=== PATIENT | female | born 1995 | race American Indian/Alaskan Native ===

== ENCOUNTER 2018-12-16 00:14 | Emergency (ER) | payer MEDICAID ==
[2018-12-16] MEDS ORDERED: TYLENOL PO ONE (00:23)
[2018-12-16 03:43] LABS: HCG Qualitative,Urine Negative (Negative)
[2018-12-16 03:47] LABS: Bilirubin,Urine Negative (Negative); Blood,Urine Negative (Negative); Color,Urine Dark Yellow (Yellow)
[2018-12-16 03:48] LABS: Mucus,Urine 2+ /HPF
[2018-12-16] MEDS ORDERED: NACL 0.9% 1000 ML 1,000 ML IV ONE (07:15)
[2018-12-16] MEDS ORDERED: ROCEPHIN/NS 1 GM/50 ML 1 GM/50 ML BAG IV ONE (07:15)
[2018-12-16 09:30] LABS: Basophils % (Auto) 0.7 % (0.0-1.8); Eosinophils % (Auto) 0.2 % (0.0-4.3); Hematocrit 39.6 % (30.3-42.9); Hemoglobin 12.8 gm/dl (10.1-14.3); Lymphocytes # (Auto) 0.9 K/mm3 (1.2-5.4); Lymphocytes % (Auto) 30.8 % (13.4-35.0); Mean Corpuscular HGB Conc 32 % (30-34); Mean Corpuscular Volume 96 fl (79-97); Monocytes # (Auto) 0.3 K/mm3 (0.0-0.8); Monocytes % (Auto) 9.1 % (0.0-7.3); Platelet Count 138 K/mm3 (140-440); Red Blood Count 4.14 M/mm3 (3.65-5.03); Red Cell Distribution Width 13.8 % (13.2-15.2)
--- NOTE | 2018-12-16 09:49 | Emergency Department Report ---
ED General Adult HPI - General Chief complaint: Pain General Stated complaint: BODY PAIN Time Seen by Provider: 12/16/18 07:14 Source: patient Mode of arrival: Ambulatory Limitations: No Limitations - History of Present Illness Initial comments: 23-year-old female plans of difficulty urinating, hematuria, dysuria. She has complaints of total body pain and some headache. He denies vomiting. She thinks she might have had some chills but did not measure her temperature. She denies nausea. She denies vaginal discharge or bleeding. She states that she has been treated for UTI in the past. She's not been on any recent antibiotics. -: Gradual, hour(s) Location: head, upper extremity, lower extremity Severity scale (0 -10): 4 Quality: aching Consistency: intermittent Improves with: none Worsens with: none Associated Symptoms: denies other symptoms (except as above) - Related Data Previous Rx's Medication Instructions Recorded Last Taken Type HYDROcodone/APAP 5-325 [[place] 1 each PO Q6HR PRN #7 tablet 12/16/18 Unknown Rx 5/325] cefUROXime [Ceftin] 250 mg PO Q12H #20 tablet 12/16/18 Unknown Rx Allergies Allergy/AdvReac Type Severity Reaction Status Date / Time No Known Allergies Allergy Verified 12/16/18 00:18 ED Review of Systems ROS: Stated complaint: BODY PAIN Other details as noted in HPI Constitutional: chills. denies: fever Eyes: denies: eye pain, eye discharge, vision change ENT: denies: ear pain, throat pain Respiratory: denies: cough, shortness of breath, wheezing Cardiovascular: denies: chest pain, palpitations Endocrine: no symptoms reported Gastrointestinal: denies: abdominal pain, nausea, diarrhea Genitourinary: as per HPI, urgency, dysuria, hematuria. denies: discharge Musculoskeletal: denies: back pain, joint swelling, arthralgia Skin: denies: rash, lesions Neurological: headache (mild nonacute associated with pain involving her entire body). denies: weakness, paresthesias Psychiatric: denies: anxiety, depression Hematological/Lymphatic: denies: easy bleeding, easy bruising ED Past Medical Hx - Past Medical History Previous Medical History?: Yes Hx Asthma: Yes - Surgical History Past Surgical History?: No - Social History Smoking Status: Never Smoker - Medications Home Medications: Home Medications Medication Instructions Recorded Confirmed Last Taken Type HYDROcodone/APAP 5-325 [[place] 1 each PO Q6HR PRN #7 tablet 12/16/18 Unknown Rx 5/325] cefUROXime [Ceftin] 250 mg PO Q12H #20 tablet 12/16/18 Unknown Rx ED Physical Exam - General Limitations: No Limitations General appearance: alert, in no apparent distress - Head Head exam: Present: atraumatic, normocephalic - Eye Eye exam: Present: normal appearance - ENT ENT exam: Present: mucous membranes dry (somewhat) - Neck Neck exam: Present: normal inspection, full ROM. Absent: tenderness, meningismus - Respiratory Respiratory exam: Present: normal lung sounds bilaterally. Absent: respiratory distress - Cardiovascular Cardiovascular Exam: Present: regular rate, normal rhythm. Absent: systolic murmur, diastolic murmur, rubs, gallop - GI/Abdominal GI/Abdominal exam: Present: soft, normal bowel sounds. Absent: distended, tenderness, guarding, rebound, rigid - Extremities Exam Extremities exam: Present: normal inspection - Back Exam Back exam: Present: normal inspection - Neurological Exam Neurological exam: Present: alert, oriented X3, CN II-XII intact. Absent: motor sensory deficit - Psychiatric Psychiatric exam: Present: normal affect, normal mood - Skin Skin exam: Present: warm, dry, intact, normal color. Absent: rash ED Course Vital Signs 12/16/18 12/16/18 12/16/18 00:21 03:42 03:49 Temperature 102.5 F H 98.9 F Pulse Rate 97 H 74 Respiratory 18 18 18 Rate Blood Pressure 136/72 Blood Pressure 102/65 [Left] O2 Sat by Pulse 100 99 Oximetry 12/16/18 07:00 Temperature Pulse Rate Respiratory 16 Rate Blood Pressure Blood Pressure [Left] O2 Sat by Pulse 98 Oximetry - Reevaluation(s) Reevaluation #1: She given IV fluid, ceftriaxone, urine culture was sent. On reexamination the patient looked improved after fluids. She had no evidence of systemic inflammatory response syndrome. The importance of lives with her antibiotic prescription and follow-up was emphasized to her. She stated she had a personal freight team associate and could follow-up without difficulty. Return criteria were discussed. 12/16/18 15:10 ED Medical Decision Making - Lab Data Result diagrams: 12/16/18 07:50 12/16/18 07:50 Laboratory Results - last 24 hr 12/16/18 12/16/18 01:17 07:50 WBC 3.0 L RBC 4.14 Hgb 12.8 Hct 39.6 MCV 96 MCH 31 MCHC 32 RDW 13.8 Plt Count 138 L Lymph % (Auto) 30.8 Barron % (Auto) 9.1 H Eos % (Auto) 0.2 Baso % (Auto) 0.7 Lymph # 0.9 L Barron # 0.3 Eos # 0.0 Baso # 0.0 Seg Neutrophils % 59.2 Seg Neutrophils # 1.8 Urine Color Dark yellow Urine Turbidity Clear Urine pH 5.0 Ur Specific [place] 1.034 H Urine Protein 30 mg/dl Urine Glucose (UA) Negative Urine Ketones 20 Urine Blood Negative Urine Nitrite Negative Ur Reducing Substances Not Reportable Urine Bilirubin Negative Urine Ictotest Not Reportable Urine Urobilinogen 2.0 Ur Leukocyte Esterase Moderate Urine WBC (Auto) 4.0 Urine RBC (Auto) 4.0 U Epithel Cells (Auto) 2.0 Urine Mucus 2+ Urine HCG, Qual Negative Laboratory Results - last 24 hr 12/16/18 12/16/18 12/16/18 01:17 07:50 07:50 WBC 3.0 L RBC 4.14 Hgb 12.8 Hct 39.6 MCV 96 MCH 31 MCHC 32 RDW 13.8 Plt Count 138 L Lymph % (Auto) 30.8 Barron % (Auto) 9.1 H Eos % (Auto) 0.2 Baso % (Auto) 0.7 Lymph # 0.9 L Barron # 0.3 Eos # 0.0 Baso # 0.0 Seg Neutrophils % 59.2 Seg Neutrophils # 1.8 Sodium 137 Potassium 3.4 L Chloride 101.9 Carbon Dioxide 22 Anion Gap 17 BUN 7 Creatinine 0.5 L Estimated GFR > 60 BUN/Creatinine Ratio 14 Glucose 121 H Calcium 8.8 Total Bilirubin 0.40 Direct Bilirubin < 0.2 AST 13 ALT 9 Alkaline Phosphatase 78 Total Protein 6.8 Albumin 4.2 Albumin/Globulin Ratio 1.6 Urine Color Dark yellow Urine Turbidity Clear Urine pH 5.0 Ur Specific [place] 1.034 H Urine Protein 30 mg/dl Urine Glucose (UA) Negative Urine Ketones 20 Urine Blood Negative Urine Nitrite Negative Ur Reducing Substances Not Reportable Urine Bilirubin Negative Urine Ictotest Not Reportable Urine Urobilinogen 2.0 Ur Leukocyte Esterase Moderate Urine WBC (Auto) 4.0 Urine RBC (Auto) 4.0 U Epithel Cells (Auto) 2.0 Urine Bacteria (Auto) Urine Mucus 2+ Urine HCG, Qual Negative 12/16/18 13:30 WBC RBC Hgb Hct MCV MCH MCHC RDW Plt Count Lymph % (Auto) Barron % (Auto) Eos % (Auto) Baso % (Auto) Lymph # Barron # Eos # Baso # Seg Neutrophils % Seg Neutrophils # Sodium Potassium Chloride Carbon Dioxide Anion Gap BUN Creatinine Estimated GFR BUN/Creatinine Ratio Glucose Calcium Total Bilirubin Direct Bilirubin AST ALT Alkaline Phosphatase Total Protein Albumin Albumin/Globulin Ratio Urine Color Yellow Urine Turbidity Clear Urine pH 5.0 Ur Specific [place] 1.016 Urine Protein <15 mg/dl Urine Glucose (UA) Neg Urine Ketones Neg Urine Blood Neg Urine Nitrite Neg Ur Reducing Substances Urine Bilirubin Neg Urine Ictotest Urine Urobilinogen < 2.0 Ur Leukocyte Esterase Tr Urine WBC (Auto) 9.0 H Urine RBC (Auto) 4.0 U Epithel Cells (Auto) 3.0 Urine Bacteria (Auto) 1+ Urine Mucus 1+ Urine HCG, Qual Critical care attestation.: If time is entered above; I have spent that time in minutes in the direct care of this critically ill patient, excluding procedure time. ED Disposition Clinical Impression: Acute pyelonephritis, Left ovarian cyst Disposition: TO HOME OR SELFCARE Is pt being admited?: No Does the pt Need Aspirin: No Condition: Stable Instructions: Urinary Tract Infection in Women (ED), Ovarian Cyst (ED) Additional Instructions: Follow-up on your urine culture test in 2-3 days with her freight team associate. Return fever chills vomiting or increase in symptoms. Rx as directed. It is extremely important that you take your antibiotic. Prescriptions: cefUROXime [Ceftin] 250 mg PO Q12H #20 tablet HYDROcodone/APAP 5-325 [[place] 5/325] 1 each PO Q6HR PRN #7 tablet PRN Reason: Pain Referrals: usual, freight team associate [Other] - 3-5 Days [facility] DIANE DEL CASTILLO MD [Primary Care Provider] - 2-3 Days Time of Disposition: 15:11
[2018-12-16 10:09] LABS: Alanine Aminotransferase 9 units/L (7-56); Albumin 4.2 g/dL (3.9-5); BUN/Creatinine Ratio 14; Blood Urea Nitrogen 7 mg/dL (7-17); Calcium 8.8 mg/dL (8.4-10.2); Hemolysis Index 10
[2018-12-16 10:17] LABS: Bilirubin,Direct < 0.2 mg/dL (0-0.2)
--- NOTE | 2018-12-16 11:16 | Ultrasound Report ---
Pelvic sonogram: History: Suprapubic pain. Findings: Uterus measures 7.8 x 2.8 x 4.4 cm. Endometrial thickness 4.5 mm. No mass within the endometrium. Right ovary 3 x 2.1 x 3.4 cm. No mass. Left ovary 3 x 2 x 2.4 cm. Cyst in the left ovary measures 1.5 cm. Impression: Left ovarian cyst.
[2018-12-16 13:53] LABS: Bacteria,Urine 1+ /HPF (Negative); Bilirubin,Urine NEG (Negative); Blood,Urine NEG (Negative); Color,Urine Yellow (Yellow); Mucus,Urine 1+ /HPF; Protein,Urine <15 mg/dL mg/dL (Negative); Urobilinogen,Urine < 2.0 mg/dL (<2.0)
[2018-12-16 15:34] VITALS: BP 107/70
== END 2018-12-16 15:35 | disposition home or self-care (01) ==
LOC: ED 00:14
DX: N10 Acute pyelonephritis (principal); N83.202 Unspecified ovarian cyst, left side; J45.909 Unspecified asthma, uncomplicated
CPT/HCPCS: 36415; 76856; 80048; 80076; 81001; 81025; 85025; 87040; 87086; 96365; 99284; J0696; J7030

== ENCOUNTER 2020-12-27 18:36 | Emergency (ER) | payer MEDICAID ==
[2020-12-27 19:31] VITALS: BP 114/108
--- NOTE | 2020-12-27 19:39 | Emergency Department Report ---
ED General Adult HPI - General Chief complaint: Dental/Oral Stated complaint: TOOTHACHE Source: patient Mode of arrival: Ambulatory Limitations: No Limitations - History of Present Illness Initial comments: Patient is a 25-year-old -[place] female with no past medical history presents to the ED with complaint of acute onset persistent severe painful swollen right mandibular and maxillary premolar molar gingiva, and painful premolar molar teeth for the last 3 days. Patient states that the last 2 days she has not been able to eat or chew anything because of worsening pain in the right mandible. Patient denies dizziness, syncope, fever, chills, nausea, vomiting, sore throat, cough, headache, neck pain, change in vision, traumatic injury or chest pain or shortness of breath. MD Complaint: Right mandibular and maxillary premolar and molar toothache, swollen gums -: Sudden, days(s) (2) Location: mouth Radiation: non-radiation Severity scale (0 -10): 8 Quality: aching, sharp Consistency: constant Improves with: none Worsens with: eating Associated Symptoms: denies other symptoms. denies: confusion, chest pain, cough, diaphoresis, fever/chills, headaches, loss of appetite, malaise, nausea/vomiting, rash, shortness of breath, syncope, weakness Treatments Prior to Arrival: none - Related Data Previous Rx's Medication Instructions Recorded Last Taken Type HYDROcodone/APAP 5-325 [[place] 1 each PO Q6HR PRN #7 tablet 12/16/18 Unknown Rx 5/325] cefUROXime [Ceftin] 250 mg PO Q12H #20 tablet 12/16/18 Unknown Rx Clindamycin [Clindamycin CAP] 300 mg PO Q8HR #60 capsule 12/27/20 Unknown Rx Ketorolac [Toradol] 10 mg PO Q8H PRN #20 tablet 12/27/20 Unknown Rx traMADoL [Ultram] 50 mg PO Q6HR PRN #12 tablet 12/27/20 Unknown Rx Allergies Allergy/AdvReac Type Severity Reaction Status Date / Time No Known Allergies Allergy Verified 12/16/18 00:18 ED Review of Systems ROS: Stated complaint: TOOTHACHE Other details as noted in HPI Constitutional: denies: chills, fever Eyes: denies: eye pain, eye discharge, vision change ENT: dental pain (Right mandibular and maxillary premolar molar teeth tenderness with swollen gums). denies: ear pain, throat pain, congestion Respiratory: denies: cough, shortness of breath, wheezing Cardiovascular: denies: chest pain, palpitations Endocrine: no symptoms reported Gastrointestinal: denies: abdominal pain, nausea, diarrhea Genitourinary: denies: urgency, dysuria, discharge Musculoskeletal: denies: back pain, joint swelling, arthralgia Skin: denies: rash, lesions Neurological: denies: headache, weakness, paresthesias Psychiatric: denies: anxiety, depression Hematological/Lymphatic: denies: easy bleeding, easy bruising ED Past Medical Hx - Past Medical History Hx Asthma: Yes - Social History Smoking Status: Current Every Day Smoker - Medications Home Medications: Home Medications Medication Instructions Recorded Confirmed Last Taken Type HYDROcodone/APAP 5-325 [[place] 1 each PO Q6HR PRN #7 tablet 12/16/18 Unknown Rx 5/325] cefUROXime [Ceftin] 250 mg PO Q12H #20 tablet 12/16/18 Unknown Rx Clindamycin [Clindamycin CAP] 300 mg PO Q8HR #60 capsule 12/27/20 Unknown Rx Ketorolac [Toradol] 10 mg PO Q8H PRN #20 tablet 12/27/20 Unknown Rx traMADoL [Ultram] 50 mg PO Q6HR PRN #12 tablet 12/27/20 Unknown Rx ED Physical Exam - General Limitations: No Limitations General appearance: alert, in no apparent distress - Head Head exam: Present: atraumatic, normocephalic, normal inspection - Eye Eye exam: Present: normal appearance, PERRL, EOMI Pupils: Present: normal accommodation - ENT ENT exam: Present: mucous membranes moist, TM's normal bilaterally, normal external ear exam, other (swollen tender right mandibular and maxillary premolar and molar gingiva and premolar and molar teeth tenderness) - Neck Neck exam: Present: normal inspection, full ROM - Respiratory Respiratory exam: Present: normal lung sounds bilaterally. Absent: respiratory distress, wheezes, rales, rhonchi, stridor, chest wall tenderness, accessory muscle use - Cardiovascular Cardiovascular Exam: Present: regular rate, normal rhythm, normal heart sounds. Absent: systolic murmur, diastolic murmur, rubs, gallop - GI/Abdominal GI/Abdominal exam: Present: soft, normal bowel sounds. Absent: tenderness, guarding, rebound, hyperactive bowel sounds, hypoactive bowel sounds, organomegaly - Extremities Exam Extremities exam: Present: normal inspection, full ROM, normal capillary refill - Back Exam Back exam: Present: normal inspection, full ROM. Absent: tenderness, CVA tenderness (R), CVA tenderness (L), muscle spasm, paraspinal tenderness, vertebral tenderness - Neurological Exam Neurological exam: Present: alert, oriented X3, CN II-XII intact, normal gait, reflexes normal - Psychiatric Psychiatric exam: Present: normal affect, normal mood - Skin Skin exam: Present: warm, dry, intact, normal color. Absent: rash ED Course Vital Signs 12/27/20 19:29 Temperature 98.9 F Pulse Rate 79 Respiratory 18 Rate Blood Pressure 114/108 O2 Sat by Pulse 100 Oximetry ED Medical Decision Making - Medical Decision Making This is a 25-year-old -[place] female with no past medical history presents to the ED with complaint of acute onset persistent severe painful swollen right mandibular and maxillary premolar molar gingiva, and painful premolar molar teeth for the last 3 days. Patient states that the last 2 days she has not been able to eat or chew anything because of worsening pain in the right mandible. In the ED, patient is alert and oriented x3 and is not in any distress. Patient was discharged home on pain medications and antibiotics and advised to follow-up with a dentist or primary care physician in 7 to 10 days for reevaluation or return to the ED immediately if symptoms get worse. - Differential Diagnosis Dental abscess; dental caries; acute gingivitis Critical care attestation.: If time is entered above; I have spent that time in minutes in the direct care of this critically ill patient, excluding procedure time. ED Disposition Clinical Impression: Dental abscess, Acute gingivitis, Dental caries Disposition: DC-01 TO HOME OR SELFCARE Is pt being admited?: No Does the pt Need Aspirin: No Condition: Stable Instructions: Dental Abscess, [id number], Dental Extraction, Care After, [id number], Trench Mouth Additional Instructions: Take medication with food, drink plenty of fluids and follow-up with your primary care physician or dentist in 7 to 10 days for reevaluation. Return to the ED immediately if symptoms get worse. Prescriptions: Clindamycin [Clindamycin CAP] 300 mg PO Q8HR #60 capsule Ketorolac [Toradol] 10 mg PO Q8H PRN #20 tablet PRN Reason: Pain traMADoL [Ultram] 50 mg PO Q6HR PRN #12 tablet PRN Reason: Pain [facility] - [facility]10 days Time of Disposition: 19:34 Print Language: BURMESE
== END 2020-12-27 20:08 | disposition home or self-care (01) ==
LOC: ED 18:36
DX: K04.7 Periapical abscess without sinus (principal); K05.00 Acute gingivitis, plaque induced; K02.9 Dental caries, unspecified; J45.909 Unspecified asthma, uncomplicated; F17.200 Nicotine dependence, unspecified, uncomplicated; Z79.899 Other long term (current) drug therapy
CPT/HCPCS: 99282

== ENCOUNTER 2021-10-01 12:57 | Emergency (ER) | payer MEDICAID ==
[2021-10-01 13:56] VITALS: BP 111/68
--- NOTE | 2021-10-01 14:19 | Emergency Department Report ---
ED Headache HPI - General Chief Complaint: Headache Stated Complaint: HEADACHE/BODY PAINS Time Seen by Provider: 10/01/21 13:55 Source: patient - History of Present Illness Initial Comments: Patient is 26 years old female with no significant past medical history. Patient stated that she started to have headache for the last few days on and off. Patient described her headache as stabbing on the right side. Patient stated that she has similar headache few months ago and she was checked anemia and she was advised to follow-up with fishing vessel captain and she had a contact lens since then. She denied any blurry vision, focal weakness numbness or tingling sensation. No neck pain. No fever or chills. Allergies/Adverse Reactions: Allergies No Known Allergies Allergy (Verified 12/16/18 00:18) Home Medications: Ambulatory Orders HYDROcodone/APAP 5-325 [[place] 5/325] 1 each PO Q6HR PRN #7 tablet 12/16/18 cefUROXime [Ceftin] 250 mg PO Q12H #20 tablet 12/16/18 Clindamycin [Clindamycin CAP] 300 mg PO Q8HR #60 capsule 12/27/20 Ketorolac [Toradol] 10 mg PO Q8H PRN #20 tablet 12/27/20 traMADoL [Ultram] 50 mg PO Q6HR PRN #12 tablet 12/27/20 Ketorolac [Toradol] 10 mg PO Q6H PRN #20 tablet 10/01/21 Sulfamethoxazole/Trimethoprim [Bactrim DS TAB] 1 each PO BID #6 tablet 10/01/21 ED Review of Systems ROS: Stated complaint: HEADACHE/BODY PAINS Other details as noted in HPI Comment: All other systems reviewed and negative Constitutional: denies: chills, fever Respiratory: denies: cough, shortness of breath, SOB with exertion Cardiovascular: denies: chest pain, palpitations Gastrointestinal: denies: abdominal pain, nausea, vomiting Musculoskeletal: denies: back pain Neurological: headache. denies: weakness, numbness, paresthesias, confusion, abnormal gait ED Past Medical Hx - Past Medical History Hx Asthma: Yes - Social History Smoking Status: Current Every Day Smoker - Medications Home Medications: Home Medications Medication Instructions Recorded Confirmed Last Taken Type HYDROcodone/APAP 5-325 [[place] 1 each PO Q6HR PRN #7 tablet 12/16/18 Unknown Rx 5/325] cefUROXime [Ceftin] 250 mg PO Q12H #20 tablet 12/16/18 Unknown Rx Clindamycin [Clindamycin CAP] 300 mg PO Q8HR #60 capsule 12/27/20 Unknown Rx Ketorolac [Toradol] 10 mg PO Q8H PRN #20 tablet 12/27/20 Unknown Rx traMADoL [Ultram] 50 mg PO Q6HR PRN #12 tablet 12/27/20 Unknown Rx Ketorolac [Toradol] 10 mg PO Q6H PRN #20 tablet 10/01/21 Unknown Rx Sulfamethoxazole/Trimethoprim 1 each PO BID #6 tablet 10/01/21 Unknown Rx [Bactrim DS TAB] ED Physical Exam - General Limitations: No Limitations General appearance: alert, in no apparent distress - Head Head exam: Present: atraumatic, normocephalic, normal inspection - Eye Eye exam: Present: normal appearance, PERRL - ENT ENT exam: Present: normal exam, normal orophraynx, mucous membranes moist - Neck Neck exam: Present: normal inspection, full ROM. Absent: tenderness, meningismus - Respiratory Respiratory exam: Present: normal lung sounds bilaterally - Cardiovascular Cardiovascular Exam: Present: regular rate, normal rhythm, normal heart sounds - GI/Abdominal GI/Abdominal exam: Present: soft, normal bowel sounds. Absent: distended, tend erness, guarding, rebound, rigid, organomegaly, mass, bruit, pulsatile mass, hernia - Extremities Exam Extremities exam: Present: normal inspection, full ROM, normal capillary refill. Absent: tenderness - Back Exam Back exam: Present: normal inspection, full ROM. Absent: CVA tenderness (R), CVA tenderness (L) - Neurological Exam Neurological exam: Present: alert, oriented X3, CN II-XII intact - Psychiatric Psychiatric exam: Present: normal mood - Skin Skin exam: Present: warm, intact, normal color ED Course Vital Signs 10/01/21 13:53 Temperature 98.5 F Pulse Rate 75 Respiratory 16 Rate Blood Pressure 111/68 [Right] O2 Sat by Pulse 98 Oximetry ED Medical Decision Making - Medical Decision Making Patient is 26 years old female with no significant past medical history. Patient stated that she started to have headache for the last few days on and off. Patient described her headache as stabbing on the right side. Patient stated that she has similar headache few months ago and she was checked anemia and she was advised to follow-up with fishing vessel captain and she had a contact lens since then. She denied any blurry vision, focal weakness numbness or tingling sensation. No neck pain. No fever or chills. Patient received Toradol 60 mg IM with improvement in her headache. Labs reviewed and showed a UTI. Patient started on Bactrim and advised to follow-up with her primary doctor in the next 2 to 3 days and to return to the ER if she develop any new symptoms. Critical care attestation.: If time is entered above; I have spent that time in minutes in the direct care of this critically ill patient, excluding procedure time. ED Disposition Clinical Impression: Acute headache, UTI (urinary tract infection) Disposition: 01 HOME / SELF CARE / HOMELESS Is pt being admited?: No Condition: Stable Instructions: Urinary Tract Infection, Adult, [id number], Migraine Headache Prescriptions: Sulfamethoxazole/Trimethoprim [Bactrim DS TAB] 1 each PO BID #6 tablet Ketorolac [Toradol] 10 mg PO Q6H PRN #20 tablet PRN Reason: Pain Referrals: PRIMARY CARE, [Primary Care Provider] - 3-5 Days
[2021-10-01 15:41] LABS: HCG Qualitative,Urine Negative (Negative)
[2021-10-01 15:46] LABS: Bilirubin,Urine NEG (Negative); Blood,Urine NEG (Negative); Color,Urine Yellow (Yellow); Mucus,Urine 1+ /HPF; Protein,Urine <15 mg/dL mg/dL (Negative); Urobilinogen,Urine < 2.0 mg/dL (<2.0)
[2021-10-01] MEDS ORDERED: KETOROLAC 60 MG/2 ML INJ IM ONE (15:55)
== END 2021-10-01 16:53 | disposition home or self-care (01) ==
LOC: ED 12:57
DX: R51.9 Headache, unspecified (principal); N39.0 Urinary tract infection, site not specified; J45.909 Unspecified asthma, uncomplicated; F17.200 Nicotine dependence, unspecified, uncomplicated
CPT/HCPCS: 81001; 81025; 87086; 96372; 99283; J1885